=== PATIENT | male | born 1970 ===

== ENCOUNTER → 2022-05-15 12:16 | Outpatient (CLI) | payer OTHER, SELFPAY ==
[2022-05-16 18:33] LABS: Cholesterol 231 mg/dL (140-199); HDL Cholesterol 51 mg/dL (40-60); LDL Cholesterol Calculated 161 mg/dL (<100); Triglycerides 96 mg/dL (35-150)
[2022-05-16 19:00] LABS: Prostate Specific Antigen Scrn 0.783 ng/mL (0.1-4.0)
[2022-05-16 19:03] LABS: Testosterone 281 ng/dL (71.8-623)
[2022-05-16 19:06] LABS: Thyroid Stimulating Hormone 1.11 uIU/mL (0.47-4.68)
== END ==
PROVIDERS: PCP Family Medicine; Visit Provider Family Medicine
DX: R68.82 Decreased libido (principal); Z86.39 Personal history of other endocrine, nutritional and metabolic disease; Z12.5 Encounter for screening for malignant neoplasm of prostate
CPT/HCPCS: 80061; 84403; 84443; G0103

== ENCOUNTER → 2023-07-28 09:19 | Outpatient (CLI) | payer OTHER, SELFPAY ==
[2023-07-28 19:38] LABS: HEMOLYSIS < 15 (0-50); Iron 149 ug/dL (49-181)
[2023-07-28 19:41] LABS: Alanine Aminotransferase 65 IU/L (<50); Albumin 4.4 g/dL (3.5-5.0); Albumin Globulin Ratio 1.5 (1.0-2.8); Alkaline Phosphatase 68 U/L (38-126); Aspartate Aminotransferase 43 IU/L (17-59); BUN Creatinine Ratio 18.6 (6-22); Bilirubin Total 0.7 mg/dL (0.2-1.3); Blood Urea Nitrogen 16 mg/dL (9-20); Calcium 9.8 mg/dL (8.4-10.2); Carbon Dioxide 27 mmol/L (22-32); Chloride 104 mmol/L (98-107); Cholesterol 248 mg/dL (140-199); Estimated Glomerular Filt Rate > 60 mL/min (>60); Globulin 2.9 g/dL (1.7-4.1); Glucose 110 mg/dL (70-100); HDL Cholesterol 51 mg/dL (40-60); HEMOLYSIS < 15 (0-50); LDL Cholesterol Calculated 173 mg/dL (<100); Potassium 4.3 mmol/L (3.4-5.1); Sodium 138 mmol/L (137-145); Total Protein 7.3 g/dL (6.3-8.2); Triglycerides 122 mg/dL (35-150); Uric Acid 7.4 mg/dL (3.5-8.5)
[2023-07-28 19:43] LABS: Add Manual Diff / Slide Review NO; Basophils Absolute Auto 0 /uL (0-100); Basophils Percent Auto 0.6 % (0-2); Eosinophils Absolute Auto 200 /uL (0-450); Eosinophils Percent Auto 2.8 % (2-4); Hematocrit 44.5 % (41-53); Hemoglobin 14.8 g/dL (13.5-17.5); Lymphocytes Absolute Auto 1700 /uL (1100-4500); Lymphocytes Percent Auto 28.3 % (25-40); Mean Corpuscular HGB Conc 33.3 % (30-36); Mean Corpuscular Hemoglobin 29.6 PG (26-34); Mean Corpuscular Volume 88.8 fL (80-100); Monocytes Absolute Auto 500 /uL (0-900); Monocytes Percent Auto 8.5 % (3-14); Neutrophils Absolute Auto 3500 /uL (1500-7000); Neutrophils Percent Auto 59.8 % (50-75); Platelet Count 236 X10^3/uL (150-400); Red Blood Cell Count 5.01 X10^6/uL (4.5-5.9); Red Cell Distribution Width 13.2 % (11.6-14.8); White Blood Cell Count 5.8 X10^3/uL (4.5-11.0)
[2023-07-28 19:53] LABS: Percent Iron Saturation 45 % (20-50); Total Iron Binding Capacity 331 ug/dL (261-462); Transferrin 272 mg/dL (206-381)
[2023-07-28 20:11] LABS: Thyroid Stimulating Hormone 2.05 uIU/mL (0.47-4.68)
[2023-07-28 20:12] LABS: Prostate Specific Antigen Scrn 0.751 ng/mL (0.1-4.0)
[2023-07-28 20:16] LABS: Ferritin 58 ng/mL (18-464); Testosterone 330 ng/dL (71.8-623)
[2023-07-28 20:27] LABS: Vitamin D 25 Hydroxy (D3) 34.2 ng/mL (30.0-100.0)
[2023-07-31 06:10] LABS: Ceruloplasmin 23.9 mg/dL (16.0-31.0)
[2023-07-31 18:25] LABS: Zinc 83 ug/dL (44-115)
[2023-08-11 22:07] LABS: Magnesium, RBC 4.9 mg/dL (3.7-7.0)
== END ==
PROVIDERS: PCP Family Medicine; Visit Provider Family Medicine
DX: Z00.00 Encounter for general adult medical examination without abnormal findings (principal); Z86.39 Personal history of other endocrine, nutritional and metabolic disease; E78.2 Mixed hyperlipidemia; R79.89 Other specified abnormal findings of blood chemistry; R68.82 Decreased libido; Z12.5 Encounter for screening for malignant neoplasm of prostate
CPT/HCPCS: 80053; 80061; 82306; 82390; 82525; 82728; 83540; 83550; 83735; 84403; 84443; 84550; 84590; 84630; 85025; G0103

== ENCOUNTER → 2023-10-28 13:28 | Outpatient (CLI) | payer OTHER, SELFPAY ==
[2023-10-28 20:31] LABS: Alanine Aminotransferase 38 IU/L (<50); Albumin 4.3 g/dL (3.5-5.0); Albumin Globulin Ratio 1.4 (1.0-2.8); Alkaline Phosphatase 66 U/L (38-126); Aspartate Aminotransferase 30 IU/L (17-59); Bilirubin Total 0.7 mg/dL (0.2-1.3); Bilirubin Unconjugated 0.4 mg/dL (0.0-1.1); HEMOLYSIS < 15 (0-50); Total Protein 7.3 g/dL (6.3-8.2)
[2023-10-28 20:56] LABS: Hemoglobin A1C% w Est Avg Glu 5.8 % (4.0-6.0)
[2023-10-29 19:44] LABS: Hepatitis B Surface Antigen NEGATIVE s/c (NEGATIVE)
[2023-10-29 19:56] LABS: Hep C Virus Ab w/Reflex Quant NEGATIVE s/c (NEGATIVE)
[2023-10-30 00:08] LABS: Hepatitis BE Antigen Negative (Negative)
[2023-10-30 06:09] LABS: Hepatitis B Core AB, IgM Negative (Negative); Hepatitis B Core Antibody Positive (Negative)
[2023-10-31 02:14] LABS: Hepatitis B Surf Ab Qualitativ Reactive (.)
[2023-11-02 07:07] LABS: Hepatitis Be Antibody Positive (Negative)
[2023-11-02 15:29] LABS: Hepatitis B Virus DNA HBV DNA not detected IU/mL (.)
== END ==
PROVIDERS: PCP Family Medicine; Visit Provider Family Medicine
DX: E78.49 Other hyperlipidemia (principal); R73.9 Hyperglycemia, unspecified; Z87.19 Personal history of other diseases of the digestive system
CPT/HCPCS: 80076; 83036; 86704; 86706; 86707; 86803; 87340; 87350; 87517

== ENCOUNTER → 2024-09-06 11:24 | Outpatient (CLI) | payer OTHER, SELFPAY ==
[2024-09-06 19:38] LABS: Add Manual Diff / Slide Review NO; Basophils Absolute Auto 0 /uL (0-100); Basophils Percent Auto 0.7 % (0-2); Eosinophils Absolute Auto 100 /uL (0-450); Eosinophils Percent Auto 2.3 % (2-4); Hematocrit 46.6 % (41-53); Hemoglobin 15.3 g/dL (13.5-17.5); Lymphocytes Absolute Auto 1300 /uL (1100-4500); Lymphocytes Percent Auto 22.8 % (25-40); Mean Corpuscular HGB Conc 32.9 % (30-36); Mean Corpuscular Hemoglobin 29.7 PG (26-34); Mean Corpuscular Volume 90.2 fL (80-100); Monocytes Absolute Auto 500 /uL (0-900); Monocytes Percent Auto 7.9 % (3-14); Neutrophils Absolute Auto 3800 /uL (1500-7000); Neutrophils Percent Auto 66.3 % (50-75); Platelet Count 280 X10^3/uL (150-400); Red Blood Cell Count 5.16 X10^6/uL (4.5-5.9); Red Cell Distribution Width 13.4 % (11.6-14.8); White Blood Cell Count 5.8 X10^3/uL (4.5-11.0)
[2024-09-06 19:49] LABS: HEMOLYSIS < 15 (0-50)
[2024-09-06 19:58] LABS: Alanine Aminotransferase 49 IU/L (<50); Albumin 4.4 g/dL (3.5-5.0); Albumin Globulin Ratio 1.4 (1.0-2.8); Alkaline Phosphatase 67 U/L (38-126); Aspartate Aminotransferase 33 IU/L (17-59); BUN Creatinine Ratio 16.5 (6-22); Bilirubin Total 0.7 mg/dL (0.2-1.3); Blood Urea Nitrogen 17 mg/dL (9-20); Calcium 9.8 mg/dL (8.4-10.2); Carbon Dioxide 26 mmol/L (22-32); Chloride 108 mmol/L (98-107); Cholesterol 268 mg/dL (140-199); Estimated Glomerular Filt Rate > 60 mL/min (>60); Globulin 3.2 g/dL (1.7-4.1); Glucose 105 mg/dL (70-100); HDL Cholesterol 52 mg/dL (40-60); LDL Cholesterol Calculated 186 mg/dL (<100); Potassium 4.3 mmol/L (3.4-5.1); Sodium 140 mmol/L (137-145); Total Protein 7.6 g/dL (6.3-8.2); Triglycerides 152 mg/dL (35-150)
[2024-09-06 20:01] LABS: HEMOLYSIS < 15 (0-50)
[2024-09-06 20:19] LABS: Vitamin D 25 Hydroxy (D3) 36.1 ng/mL (30.0-100.0)
[2024-09-06 20:26] LABS: Thyroid Stimulating Hormone 1.32 uIU/mL (0.47-4.68)
[2024-09-06 21:00] LABS: Iron 113 ug/dL (49-181)
[2024-09-06 21:12] LABS: Percent Iron Saturation 34 % (20-50); Total Iron Binding Capacity 335 ug/dL (261-462); Transferrin 299 mg/dL (206-381)
[2024-09-06 21:34] LABS: Prostate Specific Antigen Scrn 0.883 ng/mL (0.1-4.0)
[2024-09-06 23:21] LABS: Hemoglobin A1C% w Est Avg Glu 5.9 % (4.0-6.0)
== END ==
PROVIDERS: Urology; PCP Family Medicine; Referring Provider Physician Assistant; Visit Provider Physician Assistant
DX: F32.A Depression, unspecified (principal); E78.2 Mixed hyperlipidemia; Z87.19 Personal history of other diseases of the digestive system; R68.82 Decreased libido; E29.1 Testicular hypofunction; Z12.5 Encounter for screening for malignant neoplasm of prostate; R73.9 Hyperglycemia, unspecified; E78.49 Other hyperlipidemia; R79.89 Other specified abnormal findings of blood chemistry; Z86.39 Personal history of other endocrine, nutritional and metabolic disease
CPT/HCPCS: 80053; 80061; 82306; 82525; 83002; 83036; 83540; 83550; 84402; 84403; 84443; 84590; 84630; 85025; G0103